=== PATIENT | female | born 1960 ===

== ENCOUNTER 2022-06-05 11:39 | Emergency (ER) | payer OTHER ==
[2022-06-05] MEDS ORDERED: Iopamidol 612 MG/ML 100 ML Bottle IV SCH (12:30)
[2022-06-05] MEDS ORDERED: Sodium Chloride 0.9% 75 ML IV SCH (12:30)
[2022-06-05] MEDS ORDERED: Morphine 2 MG/ML SYRINGE IVPUSH ONE (12:48)
[2022-06-05] MEDS ORDERED: Ondansetron 4 MG/2 ML SDV IVPUSH ONE (12:48)
== END 2022-06-05 15:58 | disposition home or self-care (01) ==
LOC: JP.ED 11:39
DX: S22.31XA Fracture of one rib, right side, initial encounter for closed fracture (principal); S27.0XXA Traumatic pneumothorax, initial encounter; Z88.0 Allergy status to penicillin; V49.10XA Passenger injured in collision with unspecified motor vehicles in nontraffic accident, initial encounter
CPT/HCPCS: 71260; 72125; 73080; 74177; 93005; 96374; 96375; 99284; J2270; J2405; J3490; Q9967; 93010; 99282